=== PATIENT | male | born 1935 | race Caucasian/White ===

== ENCOUNTER 2018-02-22 09:04 | Day surgery (SDC) | payer OTHER ==
[~2018-02-22] VITALS: Ht 182.9 cm; Wt 91.2 kg
[~2018-02-22 09:04] MED LIST: ACIPHEX20 MG PO; ASPIR 8181 M1 PO; ATIVAN0.5 MG PO; CO Q-10200 MG PO; FISH OIL 1,2001 EAC4 PO; IMDUR120 MG PO; LIVALO4 MG PO; NORVASC10 MG PO; PLAVIX75 MG PO; ROCALTROL0.25 MCG PO; TOPROL XL100 MG PO
[2018-02-22 09:40] VITALS: BP 190/88
[2018-02-22] MEDS ORDERED: ULTRAM50 MG PO (16:30)
[2018-02-22 17:25] VITALS: BP 164/77
[2018-02-22 18:35] VITALS: BP 169/75
== END 2018-02-22 18:35 | disposition home or self-care (01) ==
LOC: SDC 09:04
DX: K40.90 Unilateral inguinal hernia, without obstruction or gangrene, not specified as recurrent (principal); D17.6 Benign lipomatous neoplasm of spermatic cord; I25.10 Atherosclerotic heart disease of native coronary artery without angina pectoris; Z95.5 Presence of coronary angioplasty implant and graft; Z79.01 Long term (current) use of anticoagulants; I71.4 Abdominal aortic aneurysm, without rupture; J44.9 Chronic obstructive pulmonary disease, unspecified; I10 Essential (primary) hypertension; E78.5 Hyperlipidemia, unspecified; M17.10 Unilateral primary osteoarthritis, unspecified knee; Z87.11 Personal history of peptic ulcer disease; Z79.82 Long term (current) use of aspirin; Z96.659 Presence of unspecified artificial knee joint; Z96.649 Presence of unspecified artificial hip joint; Z87.891 Personal history of nicotine dependence
CPT/HCPCS: C1781; J0690; J1170; J2405; J3010